=== PATIENT | female | born 1995 | race African-American/Black ===

== ENCOUNTER → 2016-07-25 | Outpatient (CLI) | payer BC ==
--- NOTE | 2016-07-25 15:42 | Diagnostic Imaging Report ---
EXAMINATION: Bilateral breast ultrasound. INDICATION: Bilateral breast lumps. FINDINGS: The four-quadrants and retroareolar region of each breast was scanned with no underlying abnormality seen. IMPRESSION: Negative study. Clinical followup is recommended. ACR BI-RADS Category 1: Negative. Result letter will be mailed to the patient. Note: At least 10% of breast cancer is not imaged by mammography. Dictated by: Dictated on workstation # [id number]
== END ==
LOC: RAD 14:03
PROVIDERS: ATTEND Nurse Practitioner Primary Care
DX: N63 Unspecified lump in breast (principal)

== ENCOUNTER 2018-01-22 10:20 | Outpatient (RCR) | payer BC | END 2018-04-22 | disposition home or self-care (01) | LOC: LAB 10:20 | PROVIDERS: ATTEND Internal Medicine | DX: K29.70 Gastritis, unspecified, without bleeding (principal); B96.81 Helicobacter pylori [H. pylori] as the cause of diseases classified elsewhere | CPT/HCPCS: 36415; 87338 ==